=== PATIENT | female | born 1980 | race Caucasian/White ===

== ENCOUNTER 2016-11-18 10:04 | Emergency (ER) | payer MEDICAID, OTHER ==
[~2016-11-18] VITALS: Ht 162.6 cm; Wt 80.0 kg
[~2016-11-18 10:04] MED LIST: CYCL1TAB29 PO; HYDR-3111 PO; ROBA500T PO; ULTR50TA5 PO
[2016-11-18 10:11] VITALS: BP 132/77; PULSE 85; RESP 15; TEMP 98.2; O2SAT 100
[2016-11-18] MEDS ORDERED: CYCLOBENZAPRINE HCL 10 MG TAB PO ONE (10:45)
[2016-11-18] MEDS ORDERED: DEXAMETHASONE SOD PHOS 20 MG/5 ML VIAL IM ONE (10:45)
[2016-11-18] MEDS ORDERED: KETOROLAC TROMETHAMINE 60 MG/2 ML (IM) VIAL IM ONE (10:45)
[2016-11-18] MEDS ORDERED: IBUP-232 PO (10:53)
[2016-11-18] MEDS ORDERED: DIAZ5 PO (10:53)
[2016-11-18] MEDS ORDERED: TRAM50TA PO (10:53)
--- NOTE | 2016-11-18 10:53 | PD ---
HPI Chief Complaint: Back/ Neck Pain or Injury Time Seen by Provider: 10:37 Travel History International Travel<30 days: No Contact w/Intl Traveler<30days: No Traveled to known affect area: No History of Present Illness HPI Patient is a 36-year-old female who presents to emergency room with complaints of left sided sciatic back pain. Patient reports that she has been dealing with her sciatic for the past year, reports that she is currently waiting for her insurance to kick in in December for she sees a specialist. Patient reports that since yesterday, she has had a flareup of her left-sided sciatic pain, reports that she went to her son's game and sat on the bleachers for too long. Reports that she has a nagging pain to her lower back which radiates down her leg. Patient denies any saddle anesthesia, denies any incontinence of urine or bowel. Patient reports that she has been walking without any difficulty. Patient reports that Tramadol as well as muscle relaxors help with her symptoms. Reports that she was prescribed opiates in the past for her pain, patient request something "less strong" at this time. PFSH Past Medical History Diminished Hearing: No Respiratory: Yes (ASTHMA) ?: Not LMP: 11/02/2016 : 3 Para: 3 Tubal Ligation: Yes Past Surgical History Section: Yes (X 3) Cholecystectomy: Yes Social History Alcohol Use: No Tobacco Use: Yes (1 PPD) Substance Use: No Allergies-Medications (Allergen,Severity, Reaction): Coded Allergies: No Known Allergies (Unverified , 11/18/16) Reported Meds & Prescriptions Reported Meds & Active Scripts Active Ibuprofen 600 Mg Tab 600 Mg PO Q6H PRN Valium (Diazepam) 5 Mg Tab 5 Mg PO BID PRN Tramadol (Tramadol HCl) 50 Mg Tab 50 Mg PO Q6H PRN Review of Systems General / Constitutional: No: Fever Eyes: No: Visual changes HENT: No: Headaches Cardiovascular: No: Chest Pain or Discomfort Respiratory: No: Shortness of Breath Gastrointestinal: No: Abdominal Pain Genitourinary: No: Dysuria Musculoskeletal: Positive: Pain (low back pain) Skin: No Rash Neurologic: No: Weakness Psychiatric: No: Depression Endocrine: No: Polydipsia Hematologic/Lymphatic: No: Easy Bruising Physical Exam Narrative GENERAL: Well-nourished, well-developed patient. SKIN: Focused skin assessment warm/dry. HEAD: Normocephalic. EYES: No scleral icterus. No injection or drainage. NECK: Supple, trachea midline. No JVD or lymphadenopathy. CARDIOVASCULAR: Regular rate and rhythm without murmurs, gallops, or rubs. RESPIRATORY: Breath sounds equal bilaterally. No accessory muscle use. GASTROINTESTINAL: Abdomen soft, non-tender, nondistended. MUSCULOSKELETAL & BACK: No cyanosis, or edema. Patient with left sided paraspinal lumbar tenderness with radiculopathy with straight leg raises. No saddle anesthesia. Patient ambulating in ER with normal gait. Data Data Last Documented VS Vital Signs Date Time Temp Pulse Resp B/P Pulse Ox O2 Delivery O2 Flow Rate FiO2 11/18/16 10:11 98.2 85 15 132/77 100 Orders Ketorolac Inj (Toradol Inj) (11/18/16 10:45) Dexamethasone Inj (Decadron Inj) (11/18/16 10:45) Cyclobenzaprine (Flexeril) (11/18/16 10:45) MDM Medical Decision Making Medical Screen Exam Complete: Yes Emergency Medical Condition: Yes Interpretation(s) Vital Signs Date Time Temp Pulse Resp B/P Pulse Ox O2 Delivery O2 Flow Rate FiO2 11/18/16 10:11 98.2 85 15 132/77 100 Differential Diagnosis Differential includes lumbar stenosis, sciatica, cauda equina though unlikely Narrative Course 36-year-old female who presents to emergency room for treatment of acute on chronic left-sided sciatic pain. Patient reports that she has flareup of her sciatic pain after sitting for an hour at her son's sports game yesterday. She reports that symptoms feel similar to her previous episodes where she has some pain radiating down her left leg. Patient with no signs and symptoms of cauda equina, she is walking in the emergency with normal gait, no saddle anesthesia, no incontinence of urine or bowel. Patient also with no fevers or chills. Plan to treat with IV dexamethasone, IV Toradol as well as muscle relaxers. Ultimately, patient understands need to follow-up with an orthopedic surgeon. She will make an appointment for December 2016 when she obtains medical insurance. Signs and symptoms of when to return to ER was reviewed with her in detail. Diagnosis Primary Impression: Sciatica Qualified Code: M54.32 - Sciatica of left side Additional Impression: Back pain Qualified Code: M54.42 - Acute left-sided low back pain with left-sided sciatica Patient Instructions: General Instructions Additional Instructions: Please follow-up with orthopedic surgery as outpatient Return to the emergency room as needed Return to the emergency room if symptoms worsen or progress Med/Other Pt SpecificInfo: Prescription(s) given Scripts Ibuprofen 600 Mg [id number] Mg PO Q6H PRN (Pain/Inflammation) #40 TAB Ref 0 Prov:Clover Flores DO 11/18/16 Diazepam (Valium)5 Mg Tab5 Mg PO BID PRN (MUSCLE SPASM) #12 TAB Ref 0 Prov:Clover Flores DO 11/18/16 Tramadol 50 Mg Tab50 Mg PO Q6H PRN (PAIN) #20 TAB Ref 0 Prov:Clover Flores DO 11/18/16 Disposition: 01 DISCHARGE HOME Condition: Stable Clover Flores DO Nov 18, 2016 10:53
== END 2016-11-18 11:00 | disposition home or self-care (01) ==
LOC: PHED 10:04
DX: M54.42 Lumbago with sciatica, left side (principal); F17.210 Nicotine dependence, cigarettes, uncomplicated
CPT/HCPCS: 96372; 99284; J1100; J1885